=== PATIENT | female | born 2000 | race Caucasian/White ===

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

== ENCOUNTER → 2022-03-01 16:03 | Outpatient (BNVA) | payer OTHER, SELFPAY | PROVIDERS: PCP Nurse Practitioner Family; Visit Provider Registered Nurse Neonatal Intensive Care | DX: Z20.2 Contact with and (suspected) exposure to infections with a predominantly sexual mode of transmission (principal); N39.0 Urinary tract infection, site not specified | CPT/HCPCS: 81000; 87077; 87086; 87184; 87491; 87591; 87661 ==

== ENCOUNTER 2022-05-25 19:34 | Emergency (ER) | payer OTHER, SELFPAY ==
[2022-05-25 19:36] VITALS: PULSE 94; RESP 16; TEMP 36.8; O2SAT 98; BMI 26.5
[2022-05-25 19:59] LABS: Add Urine Microscopic? NO; Charge for UA Resulting for Rev
[2022-05-25 20:01] LABS: Bilirubin Urine Neg (Negative); Blood Urine Neg (Negative); Glucose Urine UA Norm (Normal); Ketones Urine 1+ (Negative); Leukocyte Esterase Urine Negative (Negative); Nitrate Urine Negative (Negative); Protein Urine Neg (Negative); Urine Appearance Clear (CLEAR); Urine Color Light yellow (Yellow); Urobilinogen Urine Norm (Negative); pH Urine 6 (5-7)
[2022-05-25 20:07] LABS: HCG Qualitative Urine. Positive (Negative)
--- NOTE | 2022-05-25 21:11 | W.ED.NAVMDI ---
HPI - Nausea/Vomiting/Diarrhea General: Chief complaint: Nausea/Vomiting/Diarrhea Stated complaint: 7 wks gestation; n/v; lethargy Time Seen by Provider: 05/25/22 20:55 Source: patient Mode of arrival: ambulatory Limitations: no limitations History of Present Illness: See nursing assessment. Patient reports nausea for approximately 1 week. Patient states she has had increased nausea and vomiting for the past 2 days. She states she felt a little dizzy today due to persistent nausea vomiting. She states she has been unable to hold food and fluid down. She did take promethazine earlier today without relief. She states this is her first . She has established care already. She denies any abdominal pain. Denies any fever. Associated nausea: Yes Associated symtoms: Reports dizziness (Mild) and nausea; Denies anxiety, change in vision, chest pain, headache(s) or palpitations Review of Systems Const: Denies: fever(s) or chills Eyes: Denies: change in vision ENMT: Denies: throat pain Card: Denies: chest pain or palpitations Resp: Denies: dyspnea or wheezing GI: Reports: nausea and vomiting; Denies: abdominal pain : Denies: flank pain Musc: Denies: neck pain or back pain Skin/Breast: Denies: rash or pruritus Neuro: Reports: dizziness (Mild); Denies: headache(s) or numbness in extremities Psych: Denies: anxiety Tan/Lymph: Denies: enlarged lymph nodes [facility] ED PFSH: Medical History No pertinent past medical history neghx: htn,dm,thyroid,dvt/pe PCP: Reshma Real Surgical History No pertinent past surgical history Family History Grandmother Breast cancer Maternal--dx age late 50's Family/Other Diabetes Paternal side in general Breast cancer Maternal Great Grandmother--dx age unknown Father Hypertension Hypercholesteremia Denies family history of Colon cancer Ovarian cancer Heart disease Uterine cancer Thyroid disease Stroke Female Reproductive History: Date of last menstrual period: 04/08/22 Supplemental [facility] Information: Approximately 7 weeks . Physical Exam Const: COMMON NORMALS: no acute distress, patient oriented x3, no limitations and well nourished GENERAL APPEARANCE: cooperative HENMT: COMMON NORMALS: normocephalic and atraumatic HEAD & SCALP: normocephalic and atraumatic FACE & SINUS: normal facial exam Eye: COMMON NORMALS: EOMs intact bilaterally Neck/C-Spine: COMMON NORMALS: full ROM, no lymphadenopathy, supple and no meningeal signs GENERAL: Yes normal visual inspection Lymph: LYMPHATIC: no lymphadenopathy noted Chest: COMMONS NORMALS: normal inspection of the chest and normal palpation of entire chest wall CHEST: No Ecchymosis present and No rash Resp: COMMON NORMALS: normal respiratory effort, No retractions and clear to auscultation bilaterally EFFORT & INSPECTION: No respiratory distress AUSCULTATION: clear to auscultation bilaterally Cardio: COMMON NORMALS: regular rate, regular rhythm and Peripheral pulses 2+ throughout JUGULAR VENOUS DISTENTION: no JVD RATE: regular rate RHYTHM: regular rhythm PERIPHERAL PULSES: Peripheral pulses 2+ throughout GI: COMMON NORMALS: Normal to inspection, nondistended, normoactive bowel sounds present and non-tender : COMMON NORMALS: Yes no CVA tenderness BLADDER/KIDNEY EXAM: Yes no CVA tenderness Back/Pelvis: COMMON NORMALS: no CVA tenderness Extremity: COMMON NORMALS: normal to inspection, full ROM and capillary refill normal Neuro: COMMON NORMALS: patient oriented x3, CN's II-XII intact bilaterally, no focal motor deficits and no sensory deficits noted MENINGEAL SIGNS: Yes no meningeal signs Psych: COMMON NORMALS: mental status grossly normal and Normal thought process present THOUGHT PROCESS: Normal thought process present Skin: COMMON NORMALS: no rashes or lesions noted and no wounds GENERAL SKIN EXAM: no rashes or lesions noted Course Vital Signs: Vital signs: Vital Signs Temperature 98.3 F 05/25/22 19:36 Pulse Rate 94 05/25/22 19:36 Respiratory Rate 16 05/25/22 19:36 Pulse Oximetry 98 05/25/22 19:36 Oxygen Delivery Me thod 05/25/22 19:36 MDM - Nausea/Vomiting/Diarrhea Medical Decision Making Hyperemesis gravidarum, mild dehydration 2224: Patient feeling well. She has no nausea. She feels back to baseline. I did discuss that she can take either promethazine or metoclopramide or Zofran for nausea but do not combine the medications. Lab Data 05/25/22 21:17 05/25/22 21:30 Laboratory Results WBC 9.2 10^3/uL (4.5-13.0) 05/25/22 21:17 RBC 4.56 10^6/uL (4.1-5.3) 05/25/22 21:17 Hgb 13.1 g/dL (11.5-15.3) 05/25/22 21:17 Hct 38.7 % (37.0-47.0) 05/25/22 21:17 MCV 84.9 fl (81-99) 05/25/22 21:17 MCH 28.7 pg (28.0-34.0) 05/25/22 21:17 MCHC 33.9 g/dL (30.0-36.0) 05/25/22 21:17 RDW 12.1 % (12.1-15.1) 05/25/22 21:17 Plt Count 283 10^3/cmm (130-400) 05/25/22 21:17 MPV 9.7 fL (7.4-10.4) 05/25/22 21:17 Neut % (Auto) 63.6 % 05/25/22 21:17 Lymph % (Auto) 28.1 % 05/25/22 21:17 Hunt % (Auto) 6.3 % 05/25/22 21:17 Eos % (Auto) 1.4 % 05/25/22 21:17 Baso % (Auto) 0.5 % 05/25/22 21:17 Neut # (Auto) 5.85 10^3/uL (1.8-8.0) 05/25/22 21:17 Lymph # (Auto) 2.6 10^3/uL (1.5-6.5) 05/25/22 21:17 Hunt # (Auto) 0.6 10^3/uL (0.2-0.9) 05/25/22 21:17 Eos # (Auto) 0.1 10^3/uL (0.0-0.8) 05/25/22 21:17 Baso # (Auto) 0.1 10^3/uL (0.0-0.1) 05/25/22 21:17 Nucleated RBC % (auto) 0 % 05/25/22 21:17 Nucleated RBCs # 0.0 /100WBC 05/25/22 21:17 Sodium 136 mmol/L (136-145) 05/25/22 21:30 Potassium 3.5 mmol/L (3.5-5.1) 05/25/22 21:30 Chloride 105 mmol/L (98-107) 05/25/22 21:30 Carbon Dioxide 21 mmol/L (22-29) L 05/25/22 21:30 Anion Gap 13.5 (5-19) 05/25/22 21:30 BUN 5 mg/dL (6-20) L 05/25/22 21:30 Creatinine 0.5 mg/dL (0.5-0.9) 05/25/22 21: GFR Calculation 157.3 mL/min (90-130) H 05/25/22 21:30 Glucose 79 mg/dL (65-115) 05/25/22 21:30 Calculated Osmolality 278 mOsm/kg (285-295) L 05/25/22 21:30 Calcium 8.1 mg/dL (8.5-10.5) L 05/25/22 21:30 Total Bilirubin 0.4 mg/dL (0.15-1.2) 05/25/22 21:30 AST 13 U/L (0-32) 05/25/22 21:30 ALT 12 U/L (0-33) 05/25/22 21:30 Alkaline Phosphatase 50 U/L (35-105) 05/25/22 21:30 Total Protein 6.3 g/dL (6.6-8.7) L 05/25/22 21:30 Albumin 4.2 g/dL (3.5-5.2) 05/25/22 21: Globulin 2.1 g/dL (1.3-4.6) 05/25/22 21:30 HCG, Qual Positive (Negative) H 05/25/22 19:45 Urine Color Light yellow (Yellow) 05/25/22 19:45 Urine Appearance Clear (CLEAR) 05/25/22 19:45 Urine pH 6 (5-7) 05/25/22 19:45 Ur Specific [place] 1.010 (1.005-1.030) 05/25/22 19:45 Urine Protein Neg (Negative) 05/25/22 19:45 Urine Glucose (UA) Norm (Normal) 05/25/22 19:45 Urine Ketones 1+ (Negative) H 05/25/22 19:45 Urine Blood Neg (Negative) 05/25/22 19:45 Urine Nitrate Negative (Negative) 05/25/22 19:45 Urine Bilirubin Neg (Negative) 05/25/22 19:45 Urine Urobilinogen Norm mg/dL (Negative) 05/25/22 19:45 Ur Leukocyte Esterase Negative (Negative) 05/25/22 19:45 Discharge Plan Discharge Patient Disposition: Home Clinical Impression: Hyperemesis gravidarum, Nausea/vomiting in , First trimester , Mild dehydration Condition: Stable Prescriptions: New ondansetron 4 mg tablet,disintegrating 4 mg PO Q6H PRN (Reason: nausea and vomiting) Qty: 15 2RF metoclopramide HCl 10 mg tablet 10 mg PO Q6H PRN (Reason: nausea and vomiting) Qty: 20 2RF No Action levonorgestrel-ethinyl estrad [Levora-28] 0.15-0.03 mg tablet 1 tab PO DAILY Qty: 84 3RF ciprofloxacin HCl [Cipro] 500 mg tablet 500 mg PO BID 5 Days Qty: 10 0RF promethazine 25 mg tablet 25 mg PO Q6H PRN (Reason: nausea and vomiting) Qty: 45 0RF Discharge Orders: Discharge ED (Routine); Ordered 05/25/22 Ordered By: Garland Devries Referrals: Reshma Real FNP [Primary Care Provider] - Discharge Diet: Advance as tolerated Patient Instructions: Hyperemesis Gravidarum (ED), Dehydration (ED), at 7 to 10 Weeks (ED) Activity Restrictions/Additional Instructions: Drink plenty of fluids. May take promethazine or metoclopramide or Zofran as needed for nausea. Take medications as prescribed. Avoid taking medications together. Follow-up with OB doctor as needed. Coding Level of Care Code ED Cook Supervisor for Chg Fwd History Comprehensive Exam Comprehensive Medical Decision Making Moderate Complexity
[2022-05-25 21:20] LABS: Basophils # 0.1 10^3/uL (0.0-0.1); Basophils % 0.5 %; Eosinophils # 0.1 10^3/uL (0.0-0.8); Eosinophils % 1.4 %; Hematocrit 38.7 % (37.0-47.0); Hemoglobin 13.1 g/dL (11.5-15.3); Lymphocytes # 2.6 10^3/uL (1.5-6.5); Lymphocytes % 28.1 %; Mean Corpuscular HGB Conc 33.9 g/dL (30.0-36.0); Mean Corpuscular Hemoglobin 28.7 pg (28.0-34.0); Mean Corpuscular Volume 84.9 fl (81-99); Mean Platelet Volume 9.7 fL (7.4-10.4); Monocytes # 0.6 10^3/uL (0.2-0.9); Monocytes % 6.3 %; Neutrophils # 5.85 10^3/uL (1.8-8.0); Neutrophils % 63.6 %; Nucleated Red Blood Cells % 0 %; Platelet Count 283 10^3/cmm (130-400); Red Blood Count 4.56 10^6/uL (4.1-5.3); Red Cell Distribution Width 12.1 % (12.1-15.1); White Blood Count 9.2 10^3/uL (4.5-13.0)
[2022-05-25] MEDS: sodium chloride 0.9% 1,000 ML 999 ML IV (21:28)
[2022-05-25] MEDS: metoclopramide 5 mg/mL SDV 2 mL 10 MG IVP (21:29)
[2022-05-25 22:03] LABS: Alanine Aminotransferase 12 U/L (0-33); Albumin Level 4.2 g/dL (3.5-5.2); Alkaline Phosphatase 50 U/L (35-105); Anion Gap 13.5 (5-19); Aspartate Amino Transferase 13 U/L (0-32); Blood Urea Nitrogen 5 mg/dL (6-20); Calcium 8.1 mg/dL (8.5-10.5); Carbon Dioxide 21 mmol/L (22-29); Chloride 105 mmol/L (98-107); Globulin 2.1 g/dL (1.3-4.6); Glomerular Filtration Rate 157.3 mL/min (90-130); Glucose 79 mg/dL (65-115); Osmolality Calculated 278 mOsm/kg (285-295); Potassium 3.5 mmol/L (3.5-5.1); Sodium 136 mmol/L (136-145); Total Bilirubin 0.4 mg/dL (0.15-1.2); Total Protein 6.3 g/dL (6.6-8.7)
[2022-05-25 22:42] VITALS: BP 127/83; PULSE 65; RESP 20; O2SAT 99
== END 2022-05-25 22:45 | disposition home or self-care (01) ==
PROVIDERS: Emergency Medicine; Nurse Practitioner Family; Emergency Provider Family Medicine; PCP Nurse Practitioner Family
DX: O21.1 Hyperemesis gravidarum with metabolic disturbance (principal); Z3A.01 Less than 8 weeks gestation of pregnancy
CPT/HCPCS: 80053; 81003; 81025; 85025; 96361; 96374; 96375; 99284; J2765; J7030

== ENCOUNTER 2022-06-08 16:21 | Observation (INO) | payer OTHER, MEDICAID, SELFPAY ==
[2022-06-08 14:30] VITALS: RESP 16
[2022-06-08] MEDS: metoclopramide 5 mg/mL SDV 2 mL 10 MG IVP ×2 (14:56→21:25)
[2022-06-08] MEDS: lactated ringers 1,000 ML 999 ML IV (14:56)
[2022-06-08 14:58] VITALS: BP 109/63; PULSE 88; TEMP 36.7
[2022-06-08 15:00] VITALS: BMI 25.1
[2022-06-08 15:10] LABS: Bilirubin Urine Neg (Negative); Blood Urine Neg (Negative); Glucose Urine UA Norm (Normal); Ketones Urine 2+ (Negative); Leukocyte Esterase Urine Negative (Negative); Nitrate Urine Negative (Negative); Protein Urine Neg (Negative); Urine Appearance Hazy (CLEAR); Urine Color Yellow (Yellow); Urobilinogen Urine 1 mg/dL (Negative); pH Urine 5 (5-7)
[2022-06-08 15:15] LABS: Anion Gap 17.4 (5-19); Blood Urea Nitrogen 5 mg/dL (6-20); Calcium 9.3 mg/dL (8.5-10.5); Carbon Dioxide 21 mmol/L (22-29); Chloride 99 mmol/L (98-107); Glomerular Filtration Rate 157.3 mL/min (90-130); Glucose 96 mg/dL (65-115); Osmolality Calculated 275 mOsm/kg (285-295); Potassium 3.4 mmol/L (3.5-5.1); Sodium 134 mmol/L (136-145)
[2022-06-08 15:32] LABS: Bacteria Urine 1+ /hpf; Mucus Urine 2+ /hpf; RBC Urine 0-4 /hpf (0-2); Squamous Epithelial Cell Urine 0-4 /hpf (0-5); WBC Urine 0-4 /hpf (0-5)
--- NOTE | 2022-06-08 15:42 | US_ITS ---
WS: [id number] EARLY OBSTETRICAL ULTRASOUND (<14 WEEKS). HISTORY: for dating COMPARISON: None available. Single intrauterine gestational sac is identified. Cardiac activity at 171 BPM. [place]-rump length aide sures 1.5 cm which corresponds to a gestation of 7w5d. Normal-appearing yolk sac and amnion demonstra abiola. No subchorionic hemorrhage. No free fluid. Normal size ovaries with no mass. US/US OB <=14 wk fetus w transvag IMPRESSION: 1. Single intrauterine gestation of 7 weeks 5 days with an EDC of 01/20/2023. 2. Normal cardiac activity.
[2022-06-08 16:05] VITALS: BP 124/67; PULSE 90; RESP 17; TEMP 36.7
[2022-06-08] MEDS: sodium chloride 0.9% 1,000 ML 125 ML IV ×2 (16:07→23:50)
[2022-06-08] MEDS: promethazine 25 mg/mL SDV 1 mL IM (18:12)
[2022-06-08 21:18] VITALS: TEMP 37
[2022-06-08 21:19] VITALS: BP 99/52; PULSE 73
[2022-06-09 05:16] VITALS: BP 105/65; PULSE 78; PULSE 83; TEMP 36.6; O2SAT 99
[2022-06-09 05:52] LABS: Anion Gap 12.7 (5-19); Blood Urea Nitrogen 4 mg/dL (6-20); Calcium 8.4 mg/dL (8.5-10.5); Carbon Dioxide 20 mmol/L (22-29); Chloride 106 mmol/L (98-107); Glomerular Filtration Rate 203.5 mL/min (90-130); Glucose 76 mg/dL (65-115); Osmolality Calculated 276 mOsm/kg (285-295); Potassium 3.7 mmol/L (3.5-5.1); Sodium 135 mmol/L (136-145)
[2022-06-09] MEDS: metoclopramide 5 mg/mL SDV 2 mL 10 MG IVP (07:32)
[2022-06-09] MEDS: sodium chloride 0.9% 1,000 ML 125 ML IV (07:33)
[2022-06-09 08:29] VITALS: BP 108/59; PULSE 82
--- NOTE | 2022-06-09 12:27 | P.SS_ITS ---
Short Stay Summary Providers Date of Admit/Discharge: 06/09/22 Attending Provider: Shad Kelly MD Primary Care Provider: CHAMP Maldonado Chief Complaint: Hyperemisis gravidarium HPI History of Present Illness Monisha Giraldo is a 22 year old female Review of Systems Narrative: movement: no Const: Denies: fever(s) or chills Card: Denies: chest pain, palpitations, irregular heart rhythm or syncope Resp: Denies: dyspnea GI: Reports: nausea and vomiting; Denies: abdominal pain : Denies: flank pain, dysuria, urinary frequency or urinary urgency Musc: Denies: back pain or extremity swelling Skin/Breast: Denies: rash, pruritus, breast pain, nipple discharge or breast mass Neuro: Denies: headache(s), difficulty walking, dizziness or restless legs Psych: Denies: anxiety, depression or mood swings Endo: Denies: polyuria, tired all the time, cold intolerance or heat intolerance Tan/Lymph: Denies: easy bruising, easy bleeding, petechiae or purpura All/Imm: Denies: urticaria Home Meds/Allergies Home Medications and Allergies Home Medications Medication Instructions Recorded Confirmed Type metoclopramide HCl 10 mg tablet 10 mg PO Q6H PRN 05/30/22 05/30/22 History (Reglan) prenat.vits,halley,uic-jtyn-fnnge 1 tab PO DAILY 05/30/22 05/30/22 History Allergies Allergy/AdvReac Type Severity Reaction Status Date / Time No Known Allergies Allergy Verified 05/30/22 09:14 PFSH Acute PFSH: Medical History No pertinent past medical history neghx: htn,dm,thyroid,dvt/pe PCP: Tommy Real Surgical History No pertinent past surgical history Family History Grandmother Breast cancer Maternal--dx age late 50's Family/Other Diabetes Paternal side in general Breast cancer Maternal Great Grandmother--dx age unknown Father Hypertension Hypercholesteremia Denies family history of Colon cancer Ovarian cancer Heart disease Uterine cancer Thyroid disease Stroke Female Reproductive History: Date of last menstrual period: 04/08/22 : 1 Vitals/I&O/Wt Last Vital Signs Temp 97.9 F 06/09/22 05:16 Pulse 82 06/09/22 08:29 Resp 17 06/08/22 16:05 BP 108/59 06/09/22 08:29 Pulse Ox 99 06/09/22 05:16 O2 Del Method 06/08/22 16:29 06/08/22 06/09/22 06/09/22 22:59 06:59 14:59 Intake Total 1000 / 1000 964.583 / 1963.583 964.583 / 964.583 Balance 1000 / 1000 964.583 / 1963.583 964.583 / 964.583 Weight last 48 hrs Weight 64.41 kg Physical Exam Const: COMMON NORMALS: no acute distress and well nourished EXAM LIMITATIONS: no altered mental status GENERAL APPEARANCE: cooperative and well hydrated ORIENTATION/CONSCIOUSNESS: Yes awake, Yes oriented to person, Yes oriented to place and Yes oriented to time GI: COMMON NORMALS: Soft to palpation INSPECTION: Yes gravid abdomen PALPATION: Yes Soft to palpation and No Tenderness to palpation present (GI) Neuro: SENSORIUM/ORIENTATION: Yes oriented to person, Yes oriented to place and Yes oriented to time Hospital Course Hospital Course Ms. Giraldo is a 22 year old established patient with LMP of 04/08/2022, JACK 01/13/23, placing her at 8+6 weeks today. Was admitted yesterday due to nausea and vomiting in . She was treated with IV fluids due to dehydration, and Reglan. She have improved and she is tolerating diet. SSS Data Data Completed and Pending: Completed Studies During Hospitalization Category Date Time Status US OB <=14 wk fet us w transvag Rout ine Ultrasound 06/08/22 15:42 Completed Discharge Plan Discharge Patient Disposition: Home Condition: Stable Prescriptions: New [place] 20-20 mg tablet,IR,delayed rel,biphasic 1 tab PO BID Qty: 60 1RF Continued prenat.vits,halley,nso-[id number]-lhjdl Tablet 1 tab PO DAILY metoclopramide HCl [Reglan] 10 mg tablet 10 mg PO Q6H PRN promethazine 25 mg tablet 25 mg PO Q6H PRN (Reason: nausea and vomiting) Qty: 45 0RF promethazine 25 mg suppository 25 mg ND Q6H PRN (Reason: nausea and vomiting) Qty: 12 0RF Discharge Orders: Discharge Order (Routine); Ordered 06/09/22 Ordered By: Shad Kelly Discharge Diet: Advance as tolerated Discharge Activity: Increase activity as tolerated Patient Instructions: Hyperemesis Gravidarum (GEN), Opioid Safety, OB Undelivered Discharge Activity Restrictions/Additional Instructions: Pelvic rest for 6 weeks (no sex, no tampons, no vaginal douches). Return to the emergency room if any fever, increased bleeding, pain or worsening of nausea and vomiting. Attestations Medical Necessity Statement*: In my professional opinion per admitting diagnosis Time Spent in Patient Care*: greater than 30 min Quality Metrics Clinical Quality Measures: [ No reported AMI, CVA or VTE this stay ] Coding Level of Care Code Acute Code for Chg Fwfátima
[2022-06-09 13:01] VITALS: BP 110/58; PULSE 85
[2022-06-09 13:03] VITALS: TEMP 36.6
[2022-06-09 13:59] VITALS: RESP 15; TEMP 36.6
== END 2022-06-09 13:03 | disposition home or self-care (01) ==
LOC: OPOB 18:19 → OBGYN 18:34
PROVIDERS: Admitting Provider Obstetrics & Gynecology; PCP Nurse Practitioner Family; Visit Provider Obstetrics & Gynecology
DX: O21.9 Vomiting of pregnancy, unspecified (principal); Z3A.08 8 weeks gestation of pregnancy; E86.0 Dehydration
CPT/HCPCS: 36415; 76801; 76817; 80048; 81001; 96372; 96374; 96376; 99211; G0378; J2550; J2765; J7030; J7120

== ENCOUNTER 2022-06-20 11:32 | Outpatient (CLI) | payer OTHER, MEDICAID, SELFPAY ==
[2022-06-20 12:11] LABS: Hematocrit 36.2 % (37.0-47.0); Hemoglobin 12.1 g/dL (11.5-15.3); Mean Corpuscular HGB Conc 33.4 g/dL (30.0-36.0); Mean Corpuscular Hemoglobin 28.5 pg (28.0-34.0); Mean Corpuscular Volume 85.4 fl (81-99); Mean Platelet Volume 9.9 fL (7.4-10.4); Platelet Count 259 10^3/cmm (130-400); Red Blood Count 4.24 10^6/uL (4.1-5.3); Red Cell Distribution Width 11.9 % (12.1-15.1); White Blood Count 8.2 10^3/uL (4.5-13.0)
[2022-06-20 12:40] LABS: Rapid Plasma Reagin Syphilis Nonreactive (Nonreactive)
[2022-06-20 12:41] LABS: Rubella IgG 12.7 IU/mL (0.0-10.0)
== END 2022-06-20 11:33 | disposition home or self-care (01) ==
PROVIDERS: PCP Nurse Practitioner Family; Visit Provider Obstetrics & Gynecology
DX: Z34.00 Encounter for supervision of normal first pregnancy, unspecified trimester (principal)
CPT/HCPCS: 36415; 80307; 84315; 85027; 86592; 86762; 86803; 86850; 86900; 87086; 87340; 87806

== ENCOUNTER → 2022-07-07 10:25 | Outpatient (BNVA) | payer OTHER, MEDICAID, SELFPAY | PROVIDERS: PCP Nurse Practitioner Family; Visit Provider Obstetrics & Gynecology | DX: Z34.00 Encounter for supervision of normal first pregnancy, unspecified trimester (principal) | CPT/HCPCS: 84315; 87491; 87591; 87661 ==

== ENCOUNTER → 2022-09-06 09:28 | Outpatient (BNVA) | payer OTHER, MEDICAID, SELFPAY | PROVIDERS: PCP Nurse Practitioner Family; Visit Provider Obstetrics & Gynecology | DX: Z34.92 Encounter for supervision of normal pregnancy, unspecified, second trimester (principal); Z3A.21 21 weeks gestation of pregnancy | CPT/HCPCS: 76805 ==

== ENCOUNTER → 2022-09-11 08:51 | Outpatient (BNVA) | payer OTHER, MEDICAID, SELFPAY | PROVIDERS: PCP Nurse Practitioner Family; Visit Provider Obstetrics & Gynecology | DX: Z34.00 Encounter for supervision of normal first pregnancy, unspecified trimester (principal) | CPT/HCPCS: 81000 ==

== ENCOUNTER → 2022-09-27 08:17 | Outpatient (BNVA) | payer OTHER, MEDICAID, SELFPAY | PROVIDERS: PCP Nurse Practitioner Family; Visit Provider Obstetrics & Gynecology | DX: Z34.00 Encounter for supervision of normal first pregnancy, unspecified trimester (principal) | CPT/HCPCS: 82950; 84315 ==

== ENCOUNTER 2022-10-13 09:28 | Outpatient (CLI) | payer OTHER, MEDICAID, SELFPAY ==
[2022-10-13 09:40] VITALS: BMI 30.9
[2022-10-13 09:45] VITALS: BP 115/73; PULSE 101
[2022-10-13 10:00] VITALS: BP 116/71; PULSE 81
== END 2022-10-13 10:11 | disposition home or self-care (01) ==
LOC: OPOB 09:32 → OBGYN 09:33
PROVIDERS: PCP Nurse Practitioner Family; Visit Provider Obstetrics & Gynecology
DX: O36.8190 Decreased fetal movements, unspecified trimester, not applicable or unspecified (principal); Z3A.00 Weeks of gestation of pregnancy not specified
CPT/HCPCS: 99211

== ENCOUNTER → 2022-10-23 11:10 | Outpatient (BNVA) | payer OTHER, MEDICAID, SELFPAY | PROVIDERS: PCP Nurse Practitioner Family; Visit Provider Obstetrics & Gynecology | DX: Z34.90 Encounter for supervision of normal pregnancy, unspecified, unspecified trimester (principal) | CPT/HCPCS: 84315; 85025 ==

== ENCOUNTER → 2022-11-06 07:37 | Outpatient (BNVA) | payer OTHER, MEDICAID, SELFPAY | PROVIDERS: PCP Nurse Practitioner Family; Visit Provider Obstetrics & Gynecology | DX: Z34.00 Encounter for supervision of normal first pregnancy, unspecified trimester (principal) | CPT/HCPCS: 80053; 82570; 84156; 84315; 84550; 85025 ==

== ENCOUNTER 2022-11-09 07:43 | Outpatient (CLI) | payer OTHER, MEDICAID, SELFPAY ==
[2022-11-09 08:19] LABS: Total Volume, Urine 1500 mL
[2022-11-09 08:31] LABS: Urine Total Protein 7.6 mg/dL (0-150)
== END 2022-11-09 07:44 | disposition home or self-care (01) ==
LOC: LAB 07:49
PROVIDERS: PCP Nurse Practitioner Family; Visit Provider Obstetrics & Gynecology
DX: Z34.00 Encounter for supervision of normal first pregnancy, unspecified trimester (principal)
CPT/HCPCS: 84156

== ENCOUNTER 2022-11-09 13:18 | Outpatient (CLI) | payer OTHER, MEDICAID, SELFPAY ==
--- NOTE | 2022-11-09 13:24 | US_ITS ---
WS: [id number] BIOPHYSICAL PROFILE AMNIOTIC FLUID HISTORY: ELEVATED BLOOD PRESSURES COMPARISON: 09/06/2022 position: Vertex. Cardiac activity: 133 bpm. Cervix: Partially visualized. Obscured due to late gestational age. Placenta: Posterior, no previa or abruption. Placenta grade: 1 Parameters are as follows: Breathin Movement: 2 Tone: 2 Fluid volume: 2 Amniotic Fluid Index: 15.1 cm. US/US OB BPP wo NST [address] IMPRESSION: 1. Biophysical profile score: 8/8. 2. Normal amniotic fluid.
[2022-11-09 13:25] VITALS: BMI 32.8
[2022-11-09 13:35] VITALS: BP 120/83; PULSE 99
[2022-11-09 13:57] VITALS: BP 117/77; PULSE 100
[2022-11-09 14:17] VITALS: BP 123/79; PULSE 100
[2022-11-09 14:27] LABS: Urine Creatinine 47 mg/dL (28-217); Urine Protein Random 6 mg/dL
[2022-11-09 14:34] LABS: UPRO/UCREAT Ratio 0.13 mg/mg CR
[2022-11-09 14:38] VITALS: BP 124/80; PULSE 96
[2022-11-09 14:45] VITALS: BP 124/80; PULSE 96; RESP 16; TEMP 36.6
== END 2022-11-09 14:45 | disposition home or self-care (01) ==
LOC: OPOB 13:24 → OBGYN 13:25
PROVIDERS: PCP Nurse Practitioner Family; Visit Provider Obstetrics & Gynecology
DX: O16.9 Unspecified maternal hypertension, unspecified trimester (principal); R51.9 Headache, unspecified; Z3A.00 Weeks of gestation of pregnancy not specified
CPT/HCPCS: 59025; 76819; 82570; 84156; 99211

== ENCOUNTER → 2022-11-23 09:58 | Outpatient (BNVA) | payer OTHER, MEDICAID, SELFPAY | PROVIDERS: PCP Nurse Practitioner Family; Visit Provider Obstetrics & Gynecology | DX: Z34.93 Encounter for supervision of normal pregnancy, unspecified, third trimester (principal); Z3A.33 33 weeks gestation of pregnancy | CPT/HCPCS: 76816 ==

== ENCOUNTER 2022-11-29 17:30 | Outpatient (CLI) | payer OTHER, MEDICAID, SELFPAY ==
[2022-11-29] VITALS (30 sets, daily range): BP systolic 106–126; BP diastolic 53–70; PULSE 77–101; RESP 16–18; TEMP 36.8; O2SAT 97–99; BMI 32.8
[2022-11-29] MEDS: acetaminophen 325 mg Tablet 650 MG PO (18:23)
== END 2022-11-29 19:37 | disposition home or self-care (01) ==
LOC: OPOB 17:35 → OBGYN 17:36
PROVIDERS: PCP Nurse Practitioner Family; Visit Provider Obstetrics & Gynecology
DX: O26.899 Other specified pregnancy related conditions, unspecified trimester (principal); Z3A.00 Weeks of gestation of pregnancy not specified; R42 Dizziness and giddiness
CPT/HCPCS: 59025; 99211

== ENCOUNTER → 2022-12-05 10:11 | Outpatient (BNVA) | payer MEDICAID, SELFPAY | PROVIDERS: PCP Nurse Practitioner Family; Visit Provider Obstetrics & Gynecology | DX: O16.9 Unspecified maternal hypertension, unspecified trimester (principal) | CPT/HCPCS: 76816; 76819 ==

== ENCOUNTER 2022-12-05 11:47 | Outpatient (CLI) | payer MEDICAID, SELFPAY ==
[2022-12-05 11:59] VITALS: TEMP 35.9
[2022-12-05 12:00] VITALS: BMI 33.5
[2022-12-05 12:06] VITALS: BP 112/64; PULSE 91
[2022-12-05 12:20] VITALS: BP 119/73; PULSE 94
== END 2022-12-05 12:30 | disposition home or self-care (01) ==
LOC: OPOB 11:53 → OBGYN 11:54
PROVIDERS: PCP Nurse Practitioner Family; Visit Provider Obstetrics & Gynecology
DX: O16.9 Unspecified maternal hypertension, unspecified trimester (principal); Z3A.00 Weeks of gestation of pregnancy not specified
CPT/HCPCS: 59025; 81000; 99211

== ENCOUNTER 2022-12-08 18:13 | Outpatient (CLI) | payer MEDICAID, SELFPAY ==
[2022-12-08 18:21] VITALS: BP 125/68; PULSE 93
[2022-12-08 18:32] VITALS: BP 115/66; PULSE 83
[2022-12-08 18:42] VITALS: BP 114/64; PULSE 88
[2022-12-08 18:52] VITALS: BP 117/71; PULSE 87
== END 2022-12-08 19:01 | disposition home or self-care (01) ==
LOC: OPOB 18:13 → OBGYN 18:14
PROVIDERS: PCP Nurse Practitioner Family; Visit Provider Obstetrics & Gynecology
DX: O24.419 Gestational diabetes mellitus in pregnancy, unspecified control (principal); Z3A.00 Weeks of gestation of pregnancy not specified
CPT/HCPCS: 59025

== ENCOUNTER 2022-12-12 18:36 | Outpatient (CLI) | payer MEDICAID, SELFPAY ==
[2022-12-12 18:36] VITALS: BMI 33.8
[2022-12-12 18:45] VITALS: TEMP 37
[2022-12-12 18:48] VITALS: BP 118/74; PULSE 93
[2022-12-12 19:03] VITALS: BP 117/70; PULSE 88
== END 2022-12-12 19:15 | disposition home or self-care (01) ==
LOC: OPOB 18:41 → OBGYN 18:44
PROVIDERS: PCP Nurse Practitioner Family; Visit Provider Obstetrics & Gynecology
DX: O16.9 Unspecified maternal hypertension, unspecified trimester (principal); Z3A.00 Weeks of gestation of pregnancy not specified
CPT/HCPCS: 59025; 99211

== ENCOUNTER → 2022-12-14 08:09 | Outpatient (BNVA) | payer MEDICAID, SELFPAY | PROVIDERS: PCP Nurse Practitioner Family; Visit Provider Obstetrics & Gynecology | DX: Z34.00 Encounter for supervision of normal first pregnancy, unspecified trimester (principal) | CPT/HCPCS: 76819 ==

== ENCOUNTER 2022-12-14 09:25 | Outpatient (CLI) | payer MEDICAID, SELFPAY ==
[2022-12-14 09:29] VITALS: RESP 18
[2022-12-14 09:50] VITALS: BP 121/78; PULSE 93
== END 2022-12-14 09:52 | disposition home or self-care (01) ==
LOC: OPOB 09:26 → OBGYN 09:27
PROVIDERS: PCP Nurse Practitioner Family; Visit Provider Obstetrics & Gynecology
DX: O24.419 Gestational diabetes mellitus in pregnancy, unspecified control (principal); Z3A.00 Weeks of gestation of pregnancy not specified
CPT/HCPCS: 59025; 84315

== ENCOUNTER 2022-12-19 19:16 | Outpatient (CLI) | payer OTHER, MEDICAID, SELFPAY ==
[2022-12-19 19:20] VITALS: BP 138/80; PULSE 108; RESP 16; TEMP 35.8; TEMP 36.6; BMI 34.2
[2022-12-19 19:40] VITALS: BP 138/80; PULSE 108; RESP 16; TEMP 36.6
== END 2022-12-19 19:45 | disposition home or self-care (01) ==
LOC: OPOB 19:16 → OBGYN 19:18
PROVIDERS: PCP Nurse Practitioner Family; Visit Provider Obstetrics & Gynecology
DX: Z36.9 Encounter for antenatal screening, unspecified (principal)
CPT/HCPCS: 59025

== ENCOUNTER → 2022-12-21 07:57 | Outpatient (BNVA) | payer MEDICAID, SELFPAY | PROVIDERS: PCP Nurse Practitioner Family; Visit Provider Obstetrics & Gynecology | DX: Z34.93 Encounter for supervision of normal pregnancy, unspecified, third trimester (principal); Z3A.36 36 weeks gestation of pregnancy | CPT/HCPCS: 76815; 76819 ==

== ENCOUNTER 2022-12-21 10:20 | Outpatient (CLI) | payer MEDICAID, SELFPAY ==
[2022-12-21 10:20] VITALS: BMI 34.0
[2022-12-21 10:31] VITALS: BP 121/74; PULSE 100
[2022-12-21 10:46] VITALS: BP 110/66; PULSE 90
[2022-12-21 11:01] VITALS: BP 113/65; PULSE 91
[2022-12-21 11:22] VITALS: BP 113/65; PULSE 91; RESP 18
[2022-12-26 19:14] VITALS: BP 122/68; PULSE 75
[2022-12-26 19:28] VITALS: BP 119/66; PULSE 78
== END 2022-12-21 11:05 | disposition home or self-care (01) ==
LOC: OPOB 10:22 → OBGYN 10:23
PROVIDERS: PCP Nurse Practitioner Family; Visit Provider Obstetrics & Gynecology
DX: O16.9 Unspecified maternal hypertension, unspecified trimester (principal)
CPT/HCPCS: 59025; 84315; 87081

== ENCOUNTER 2022-12-26 18:42 | Outpatient (CLI) | payer MEDICAID, SELFPAY ==
[2022-12-26 18:42] VITALS: BMI 34.0
[2022-12-26 18:56] VITALS: RESP 16
[2022-12-26 19:33] VITALS: RESP 16
== END 2022-12-26 19:33 | disposition home or self-care (01) ==
LOC: OPOB 18:46 → OBGYN 18:48 → OPOB 19:01 → OBGYN 19:04
PROVIDERS: PCP Nurse Practitioner Family; Visit Provider Obstetrics & Gynecology
DX: Z36.9 Encounter for antenatal screening, unspecified (principal)
CPT/HCPCS: 59025

== ENCOUNTER → 2022-12-28 07:56 | Outpatient (BNVA) | payer OTHER, MEDICAID, SELFPAY | PROVIDERS: PCP Nurse Practitioner Family; Visit Provider Obstetrics & Gynecology | DX: O13.9 Gestational [pregnancy-induced] hypertension without significant proteinuria, unspecified trimester (principal) | CPT/HCPCS: 76819 ==

== ENCOUNTER 2022-12-28 10:24 | Outpatient (CLI) | payer OTHER, MEDICAID, SELFPAY ==
[2022-12-28 10:23] VITALS: BMI 34.2
[2022-12-28 10:32] VITALS: BP 126/82; PULSE 86
[2022-12-28 10:45] VITALS: RESP 17
[2022-12-28 10:47] VITALS: BP 121/79; PULSE 82
[2022-12-28 11:02] VITALS: BP 117/75; PULSE 96
[2022-12-28 11:05] LABS: Actim Prom Negative
[2022-12-28 11:14] VITALS: BP 117/75; PULSE 96
== END 2022-12-28 11:14 | disposition home or self-care (01) ==
LOC: OPOB 10:25 → OBGYN 10:27
PROVIDERS: Absent Provider Obstetrics & Gynecology; PCP Nurse Practitioner Family; Visit Provider Obstetrics & Gynecology
DX: O13.9 Gestational [pregnancy-induced] hypertension without significant proteinuria, unspecified trimester (principal); Z3A.00 Weeks of gestation of pregnancy not specified
CPT/HCPCS: 59025; 84112; 84315; 99211

== ENCOUNTER 2023-01-01 11:44 | Outpatient (CLI) | payer OTHER, MEDICAID, SELFPAY ==
[2023-01-01 11:40] VITALS: BMI 34.2
[2023-01-01 11:50] VITALS: BP 132/80; PULSE 88
[2023-01-01 12:03] VITALS: BP 127/74; PULSE 103
[2023-01-01 12:20] VITALS: BP 127/74; PULSE 103; RESP 16; TEMP 36.3
== END 2023-01-01 12:20 | disposition home or self-care (01) ==
LOC: OPOB 11:45 → OBGYN 11:46
PROVIDERS: PCP Nurse Practitioner Family; Visit Provider Obstetrics & Gynecology
DX: O13.9 Gestational [pregnancy-induced] hypertension without significant proteinuria, unspecified trimester (principal); Z3A.00 Weeks of gestation of pregnancy not specified
CPT/HCPCS: 59025; 99211

== ENCOUNTER 2023-01-02 11:38 | Outpatient (CLI) | payer OTHER, MEDICAID, SELFPAY ==
[2023-01-01 11:50] VITALS: PULSE 88
[2023-01-02 11:40] VITALS: BMI 34.2
[2023-01-02 11:49] VITALS: BP 132/88; PULSE 97
[2023-01-02 11:54] VITALS: RESP 15
[2023-01-02 12:10] VITALS: BP 120/70; PULSE 79
[2023-01-02 15:00] VITALS: BP 124/75; PULSE 120
[2023-01-02 15:21] VITALS: BP 117/65; PULSE 100
== END 2023-01-02 15:30 | disposition home or self-care (01) ==
LOC: OPOB 11:44 → OBGYN 11:45
PROVIDERS: PCP Nurse Practitioner Family; Visit Provider Obstetrics & Gynecology
DX: O16.9 Unspecified maternal hypertension, unspecified trimester (principal); Z3A.00 Weeks of gestation of pregnancy not specified
CPT/HCPCS: 59025; 99211

== ENCOUNTER → 2023-01-04 08:44 | Outpatient (BNVA) | payer OTHER, MEDICAID, SELFPAY | PROVIDERS: PCP Nurse Practitioner Family; Visit Provider Obstetrics & Gynecology | DX: Z34.00 Encounter for supervision of normal first pregnancy, unspecified trimester (principal) | CPT/HCPCS: 76819; 84315 ==

== ENCOUNTER 2023-01-06 08:49 | Inpatient (IN) | payer OTHER, MEDICAID, SELFPAY ==
[2023-01-06] VITALS (30 sets, daily range): BP systolic 112–130; BP diastolic 60–92; PULSE 63–98; RESP 16; TEMP 35.9; O2SAT 92–100; BMI 33.8
[2023-01-06 09:24] LABS: Basophils % 0.4 %; Eosinophils # 0.1 10^3/uL (0.0-0.8); Eosinophils % 0.7 %; Hematocrit 31.6 % (36-47); Lymphocytes # 1.4 10^3/uL (1.5-6.5); Lymphocytes % 12.6 %; Mean Corpuscular HGB Conc 32.9 g/dL (30-55); Mean Corpuscular Hemoglobin 27.9 pg (27-33); Mean Corpuscular Volume 84.7 fl (85-98); Mean Platelet Volume 10.3 fL (7.4-10.4); Monocytes # 0.9 10^3/uL (0.2-0.9); Monocytes % 7.9 %; Neutrophils # 8.51 10^3/uL (1.8-8.0); Neutrophils % 77.9 %; Nucleated Red Blood Cells % 0 %; Platelet Count 229 10^3/cmm (157-399); Red Blood Count 3.73 10^6/uL (3.85-5.65); Red Cell Distribution Width 13.1 % (12.1-15.1); White Blood Count 10.91 10^3/uL (4.5-13.0)
[2023-01-06] MEDS: miSOPROStol 100 mcg tablet 25 MCG VAGINAL ×2 (09:27→13:54)
--- NOTE | 2023-01-06 09:40 | P.HP_ITS ---
Providers/Chief Complaint Admitting Physician: alyssa Primary HOME CARE PROVIDER: Jose Primary Care Provider: CHAMP Maldonado Chief Complaint: IOL HPI HOME CARE PROVIDER History of Present Illness Monisha Munguia is a 22 year old female G1, P0 at 39 weeks gestation with JACK 01/13/2023 by early ultrasound. Patient is admitted for induction of labor due to gestational hypertension. To date patient has required no medication. She complains of several episodes of blurred vision, denies headaches chest pain or shortness of breath. She admits to good movement with no abdominal or pelvic pain. She denies any leakage of fluid or vaginal bleeding. She has been having nonstress test biweekly which has been reassuring. She does blood pressure monitoring at home and has had several high values with a diastolic of 100 and several in the 90s. Today her pelvic exam cervix is closed, soft. I have reviewed with patient use of Cytotec for cervical ripening, and Pitocin for contraction and the possibility of nonreassuring monitoring which may result in the need for section delivery. Patient verbalizes understanding. Review of Systems General: Reports: 10 or more systems reviewed and unremarkable except in HPI and below Medications/Allergies Home Medications Medication Instructions Recorded Confirmed Last Taken Type prenat.vits,halley,gfn-suqd-pmcwa 1 tab PO DAILY 05/30/22 01/04/23 12/14/22 08:00 History ondansetron HCl 4 mg tablet 4 mg PO Q8H 11/06/22 01/04/23 01/02/23 10:35 History acetaminophen 325 mg capsule 325 mg PO QID PRN Mild Pain (Scale 12/14/22 01/04/23 Unknown History (Tylenol) Score 1-4) Allergies Allergy/AdvReac Type Severity Reaction Status Date / Time No Known Allergies Allergy Verified 01/04/23 08:37 PFSH HOME CARE PROVIDER PFSH: Medical History No pertinent past medical history neghx: htn,dm,thyroid,dvt/pe PCP: Tommy Real Surgical History No pertinent past surgical history Family History Grandmother Breast cancer Maternal--dx age late 50's Family/Other Diabetes Paternal side in general Breast cancer Maternal Great Grandmother--dx age unknown Father Hypertension Hypercholesteremia Denies family history of Colon cancer Ovarian cancer Heart disease Uterine cancer Thyroid disease Stroke History History History 1 Term 0 Miscarriages/Ectopic Living Children Care JACK Calculator Estimated Delivery Date Method Current WG Current Estimate 01/13/23 LMP (Certain) 39w 0d Other Estimates 01/20/23 Ultrasound #1 38w 0d Expected Delivery Route/Plan JACK 01/20/2023 BASED ON 7 WEEK ULTRASOUND Specific Issues/Plans * Nausea and vomiting Vitals/I&O/Wt Last Vital Signs Pulse 82 01/06/23 09:33 BP 112/66 01/06/23 09:33 Physical Exam Narrative: 22-year-old female alert and orient x3 no acute distress Const: COMMON NORMALS: no acute distress, healthy appearing and well nourished HENMT: COMMON NORMALS: normocephalic Resp: COMMON NORMALS: normal respiratory effort and clear to auscultation bilaterally Cardio: COMMON NORMALS: regular rate, regular rhythm and No murmurs present (Cardio) GI: COMMON NORMALS: Soft to palpation and non-tender Back/Pelvis: COMMON NORMALS: no CVA tenderness Extremity: COMMON NORMALS: normal to inspection, no clubbing, cyanosis or edema, no calf tenderness and no pedal edema Neuro: COMMON NORMALS: CN's II-XII intact bilaterally and moves all extremities Data 01/06/23 08:50 A&P Assessment and plan (1) Supervision of normal first : Admitted to labor and delivery for cervical ripening/induction of labor (2) Gestational hypertension: Attestations Medical Necessity Statement*: Induction of labor for gestational hypertension at 39 weeks gestation. Coding Level of Care Code Acute Code for Chg Fwd Diagnoses Supervision of normal first Z34.00 Gestational hypertension O13.9
[2023-01-06] MEDS: dextrose 5%-lactated ringers 1,000 ML 125 ML IV (18:32)
[2023-01-06] MEDS: oxytocin 30 UNIT/500 ML BAG IV (18:32)
--- NOTE | 2023-01-06 20:09 | PM.PN ---
Subjective Subjective: 22-year-old female G1, P0 at 39 weeks gestation for induction of labor due to gestational hypertension. Patient has received 2 doses of Cytotec vaginally when cervix was closed. Cervix currently 1 cm 50% -2 vertex presentation. Pitocin was started and currently at 5. EFM?reassuring BP tolerating trial of labor well 121/70. Patient states contractions are getting uncomfortable but she desires no pain medication at this time. Vitals/I&O/Wt Last Vital Signs Pulse 65 01/06/23 20:07 Resp 16 01/06/23 08:39 BP 121/70 01/06/23 20:07 O2 Del Method Room Air 01/06/23 08:00 01/06/23 01/06/23 01/06/23 06:59 14:59 22:59 Intake Total 1.967 / 1.967 Balance 1.967 / 1.967 Weight last 48 hrs Weight 86.636 kg Data 01/06/23 08:50 A&P Assessment and plan (1) Supervision of normal first : (2) Gestational hypertension: Plan P. Continue Pitocin induction per protocol. Pain management at patient's request. Will AROM at 3 to 4 cm. Attestations Medical Necessity Statement*: Induction of labor due to gestational hypertension Coding Level of Care Code Acute Code for Chg Fwd Diagnoses Supervision of normal first Z34.00 Gestational hypertension O13.9
[2023-01-06] MEDS: lactated ringers 1,000 ML 999 ML IV ×2 (22:49→22:50)
--- NOTE | 2023-01-06 23:10 | ANES.PREANE2 ---
Pre-Anesthetic Assessment Height/Weight: Height 1.6 m Weight 86.636 kg Temp Pulse Resp BP Pulse Ox O2 Del Method 96.6 F L 88 16 124/66 99 Room Air 01/06/23 21:43 01/06/23 23:26 01/06/23 08:39 01/06/23 23:26 01/06/23 23:22 01/06/23 19:55 Preop Diagnosis: IUP Familial anesthetic complications: none Was Beta Makenna taken within 24 hours: N/A Was Clonidine taken within 24 hours: N/A Social No alcohol and No tobacco Exam alert and oriented x 3 Airway Submandibular: within normal limits Cervical ROM: within normal limits Mallampati: Class II Dentition: full History/ROS No significant history except as noted Pulmonary None reported CV/HEM Hypertension (gestational) None reported Hepatic None reported GI None reported Metabolic None reported Musc/skel None reported Neuropsych None reported Anesthetic Plan ASA status: 2 Anesthesia: Anesthesia Evaluation, General and Regional (specify below) (epidural) Medications/Allergies Home Medications Medication Instructions Recorded Confirmed Last Taken Type prenat.vits,halley,kse-pwvl-tlefy 1 tab PO DAILY 05/30/22 01/04/23 12/14/22 08:00 History ondansetron HCl 4 mg tablet 4 mg PO Q8H 11/06/22 01/04/23 01/02/23 10:35 History acetaminophen 325 mg capsule 325 mg PO QID PRN Mild Pain (Scale 12/14/22 01/04/23 Unknown History (Tylenol) Score 1-4) Allergies Allergy/AdvReac Type Severity Reaction Status Date / Time No Known Allergies Allergy Verified 01/04/23 08:37 Current Medications Generic Name Dose Route Start Last Admin Trade Name Freq PRN Reason Stop Dose Admin Dextrose/Lactated Ringer's 1,000 mls @ 125 mls/hr 01/06/23 08:45 01/06/23 18:32 Dextrose 5%-Lactated Ringers IV 125 mls/hr .Q8H UYEN Administration Oxytocin 30 unit in 500 mls @ 1 mls/hr 01/06/23 18:00 01/06/23 22:15 Pitocin IV 13 milliunit/min .Q24H UYEN 13 mls/hr Titration Protocol 1 MILLIUNIT/MIN Lactated Ringer's 1,000 mls @ 999 mls/hr 01/06/23 21:23 01/06/23 22:50 Lactated Ringers IV 999 mls/hr .Q1H1M PRN Administration See label comments Misoprostol 25 mcg 01/06/23 08:42 01/06/23 13:54 Misoprostol 100 Mcg Tablet VAGINAL 25 mcg Q4H PRN Administration cervical ripening PFSH Anesthesia Medical History No pertinent past medical history neghx: htn,dm,thyroid,dvt/pe PCP: Tommy Real Surgical History No pertinent past surgical history Family History Grandmother Breast cancer Maternal--dx age late 50's Family/Other Diabetes Paternal side in general Breast cancer Maternal Great Grandmother--dx age unknown Father Hypertension Hypercholesteremia Denies family history of Colon cancer Ovarian cancer Heart disease Uterine cancer Thyroid disease Stroke Female Reproductive History : 1 Data Anesthesia 01/06/23 08:50 Short CBC 01/06/23 Range/Units 08:50 WBC 10.91 (4.5-13.0) 10^3/uL Hgb 10.40 L (12.4-14.8) g/dL Hct 31.6 L (36-47) % MCV 84.7 L (85-98) fl Plt Count 229 (157-399) 10^3/cmm Neut % (Auto) 77.9 % Neut # (Auto) 8.51 H (1.8-8.0) 10^3/uL Cardiac Studies: No Data to Display
--- NOTE | 2023-01-06 23:29 | P.ANES_ITS ---
Anesthesia Procedures Procedure/Date: 01/06/23 Epidural: Time Out Performed: Yes Consents Signed: Procedure Consent Consent: from patient, risks and benefits reviewed and patient agrees to proceed Lumbar Level: L3-L4 Epidural position: sitting Epidural procedure: sterile prep of area, 1% lidocaine to numb the area, 18 g needle, neg for parest hesia, test dose given, 1.5% xylocaine 1:200k epi, placed PCEA, no systemic response, sterile dressing applied, L.U.D. no apparent complications and 0.2% Ropiavacaine @ mls/hr (10) Additional Comments: SHAYLEE at 5.5, taped at 11 at skin. negative blood/ CSF return upon aspiration.
[2023-01-06] MEDS: ROPivacaine syringe 100 MG/50 ML SYRINGE 10 MG EPIDURAL (23:30)
[2023-01-07] VITALS (49 sets, daily range): BP systolic 104–156; BP diastolic 60–95; PULSE 57–112; RESP 15–17; TEMP 36.2–36.9; O2SAT 97–98
[2023-01-07] MEDS: ROPivacaine syringe 100 MG/50 ML SYRINGE 10 MG EPIDURAL (03:06)
[2023-01-07] MEDS: ondansetron 2 mg/ML SDV 2 mL 4 MG IVP (03:39)
[2023-01-07] MEDS: dextrose 5%-lactated ringers 1,000 ML 125 ML IV (04:15)
--- NOTE | 2023-01-07 07:18 | P.PCNOB_ITS ---
Delivery Note: Date of delivery: January 07, 2023 Pre-delivery diagnoses: 22yo female at 39.1 wk IUP with GHTN Post-delivery diagnoses: same Procedure: 1. Cervical Ripening-Cytotec 2. Induction of labor with Pitocin 3. Spontaneous vaginal delivery of a viable male Op report anesthesia: Epidural Delivering Physician: Marlee BAIN Estimated blood loss (mL): 300 Findings: Normal male Delivery: After complete dilatation patient was allowed to labor down. She began to experience vaginal pressure and with serial pushing with contractions the vertex was delivered to +2 presentation. She continued to push the head presented in although a presentation, nuchal cord x1 was easily reduced followed by delivery of the anterior then posterior shoulders. The remainder of the baby's body easily delivered over an intact perineum. With stimulation, a robust cry was noted. The cord was clamped after a delay and baby placed on the mother's chest for bonding. Nursing staff present for assessment drying of the baby and assisting mom. The baby was then taken to the warmer for further evaluation. Cord blood was obtained and handed off. Three-vessel cord was noted and with fundal massage the placenta presented in a Montano presentation with trailing membranes. The uterus was massaged and firmed. The Pitocin IV solution was st arted in a bolus manner. The vaginal vault was explored with no lacerations noted. ?7/9 weight?7 pounds 6 Mother and infant are both in stable and satisfactory condition. Post-Delivery Status: Stable History History History 1 Term 1 0 Miscarriages/Ectopic Living Children 1 Past Pregnancies Del. Date GA/Weeks Outcome Route Wt Inf Gender Labor Lgth Comp. Anesth esia Location 01/07/23 39 live - full term Vaginal 3.345 kg Male A&P Assessment and plan (1) Supervision of normal first : P. Began care (2) Gestational hypertension: P. We will continue to watch blood pressure, and reviewed with patient risk of hypertension in the future. Coding Level of Care Code Acute Code for Chg Fwd Diagnoses Supervision of normal first Z34.00 Gestational hypertension O13.9
--- NOTE | 2023-01-07 09:03 | ANE.PACU2 ---
Inpatient post-anesthesia follow up: Airway intact: Yes Vital signs: Temperature 97.3 F Pulse Rate 72 Respiratory Rate 16 Blood Pressure 111/77 Pulse Oximetry 99 Oxygen Delivery Me thod Room Air Oxygen Flow Rate Fraction of Inspir ed Oxygen Hydration adequate: Yes Nausea and vomiting: No Pain level: 2 Mental status: Baseline
[2023-01-07] MEDS: acetaminophen 325 mg Tablet 650 MG PO (09:54)
[2023-01-07] MEDS: lanolin oint 7 gm 1 APPLIC TOPICAL (09:54)
[2023-01-07] MEDS: ibuprofen 800 mg tablet PO ×2 (14:36→21:41)
[2023-01-07] MEDS: docusate sodium 100 mg Capsule PO (18:56)
[2023-01-07 21:02] LABS: Hematocrit 28.7 % (36-47); Mean Corpuscular HGB Conc 32.8 g/dL (30-55); Mean Corpuscular Volume 85.4 fl (85-98); Mean Platelet Volume 10.2 fL (7.4-10.4); Platelet Count 218 10^3/cmm (157-399); Red Blood Count 3.36 10^6/uL (3.85-5.65); White Blood Count 14.46 10^3/uL (4.5-13.0)
[2023-01-08 05:34] VITALS: BP 116/77; PULSE 66; RESP 16; TEMP 36.9; O2SAT 98
[2023-01-08] MEDS: ibuprofen 800 mg tablet PO (08:56)
[2023-01-08] MEDS: prenatal vitamin Capsule 1 CAP PO (08:56)
--- NOTE | 2023-01-08 09:28 | PM.OBGYDC ---
Discharge Providers [employer] Date of Admission: 01/06/23 08:49 Date of Discharge: 01/08/23 Attending Provider at Admission: Kimberly Amin DO Attending Provider at Discharge: Kimberly Amin DO Primary Care Provider: CHAMP Maldonado Diagnoses at Discharge Discharge Diagnosis (1) Supervision of normal first : Status: Acute (2) Gestational hypertension: Status: Acute Reason for Visit Reason for Visit: IOL Brief History: GHTN Hospital Course Hospital Course 22yo Female delivered by a viable male after IOL with Hx of GHTN. course uneventful. VSS, afebrile. Pt is well. Pt denies JAMESON, blurred vision, CP or SOB. She is tolerating regular diet, ambulating and voiding. Disussion of discharge expectations, and pt verbalizes understanding. Information Peripartum Data: Infant Delivery Method: Vaginal Physical Exam Back/Pelvis: OTHER: Abd- soft, fundus firm below umbilicus Lochia light. Extremity: NARRATIVE EXTREMITY EXAM: no edema Homans neg Urinary Catheter Management: Ford: Cath Placed During This Visit: yes, but has since been removed by the nurse Reason for Continuing Indwelling Catheter: Decision to DC Catheter Urinary Catheter Date of Insertion: 01/07/23 Urinary Catheter Time of Insertion: 00:46 Date Urinary Catheter Removed: 01/07/23 Time Urinary Catheter Discontinued: 06:44 History History History 1 Term 1 0 Miscarriages/Ectopic Living Children 1 Past Pregnancies Del. Date GA/Weeks Outcome Route Wt Inf Gender Labor Lgth Comp. Anesthesia Location 01/07/23 39 live - full term Vaginal 3.345 kg Male Discharge Data Studies Completed and Pending Laboratory Results WBC 14.46 10^3/uL (4.5-13.0) H 01/07/23 20:43 RBC 3.36 10^6/uL (3.85-5.65) L 01/07/23 20:43 Hgb 9.40 g/dL (12.4-14.8) L 01/07/23 20:43 Hct 28.7 % (36-47) L 01/07/23 20:43 MCV 85.4 fl (85-98) 01/07/23 20:43 MCH 28.0 pg (27-33) 01/07/23 20:43 MCHC 32.8 g/dL (30-55) 01/07/23 20:43 RDW 13.0 % (12.1-15.1) 01/07/23 20:43 Plt Count 218 10^3/cmm (157-399) 01/07/23 20:43 MPV 10.2 fL (7.4-10.4) 01/07/23 20:43 Neut % (Auto) 77.9 % 01/06/23 08:50 Lymph % (Auto) 12.6 % 01/06/23 08:50 [place]key % (Auto) 7.9 % 01/06/23 08:50 Eos % (Auto) 0.7 % 01/06/23 08:50 Baso % (Auto) 0.4 % 01/06/23 08:50 Neut # (Auto) 8.51 10^3/uL (1.8-8.0) H 01/06/23 08:50 Lymph # (Auto) 1.4 10^3/uL (1.5-6.5) L 01/06/23 08:50 [place] # (Auto) 0.9 10^3/uL (0.2-0.9) 01/06/23 08:50 Eos # (Auto) 0.1 10^3/uL (0.0-0.8) 01/06/23 08:50 Baso # (Auto) 0.0 10^3/uL (0.0-0.1) 01/06/23 08:50 Nucleated RBC % (auto) 0 % 01/06/23 08:50 Nucleated RBCs # 0.0 /100WBC 01/06/23 08:50 Vitals Last Vital Signs Temp 98.4 F 01/08/23 05:34 Pulse 66 01/08/23 05:34 Resp 16 01/08/23 05:34 BP 116/77 01/08/23 05:34 Pulse Ox 98 01/08/23 05:34 O2 Del Method Room Air 01/08/23 05:34 Discharge Plan Discharge Patient Disposition: Home Prescriptions: Continued prenat.vits,halley,[id number] Tablet 1 tab PO DAILY acetaminophen [Tylenol] 325 mg capsule 325 mg PO QID PRN (Reason: Mild Pain (Scale Score 1-4)) Discontinued ondansetron HCl 4 mg tablet 4 mg PO Q8H Discharge Orders: Discharge Order (Routine); Ordered 01/08/23 Ordered By: Kimberly Amin Discharge Diet: Regular Discharge Activity: Resume usual activity and Limit activity as instructed Patient Instructions: Opioid Safety Activity Restrictions/Additional Instructions: Pelvic rest x 6 wks Assessment: 1. 39wk IUP with GHTN delivered 2. Asymptomatic Anemia- acute blood loss from delivery Plan of Treatment: DC to home F/U 4 wk for visit Discharge Attestations [employer] Time Spent in Discharge Care*: less than 30 min Coding Level of Care Code Acute Code for Chg Fwd Diagnoses Supervision of normal first Z34.00 Gestational hypertension O13.9
[2023-01-08 10:00] VITALS: BP 127/82; PULSE 68; RESP 17; TEMP 36.8; O2SAT 98
[2023-01-08 11:45] VITALS: BP 127/82; PULSE 68; RESP 17; TEMP 36.8; O2SAT 98
== END 2023-01-08 12:10 | disposition home or self-care (01) | DRG 807 ==
LOC: OPOB 01-16 10:37
PROVIDERS: Admitting Provider Obstetrics & Gynecology; PCP Nurse Practitioner Family; Visit Provider Obstetrics & Gynecology
DX: O13.4 Gestational [pregnancy-induced] hypertension without significant proteinuria, complicating childbirth (principal); Z37.0 Single live birth; O69.81X0 Labor and delivery complicated by cord around neck, without compression, not applicable or unspecified; Z3A.39 39 weeks gestation of pregnancy
CPT/HCPCS: 36415; 51702; 59025; 85025; 85027; 96374; 99211; G0103; J2405; J2590; J2795; J7120; J7121

== ENCOUNTER 2023-10-11 16:41 | Emergency (ER) | payer OTHER, MEDICAID, SELFPAY ==
--- NOTE | 2023-10-11 16:43 | ECG_ITS ---
[facility] Test Date: 2023-10-11 Pat Name: Monisha Munguia Department: Room: Gender: Female Supervisor [employer]: : 2000 Requested By: Ernst Hayes Order Number: [id number] Kel MD: Joaquin Low M.D. Measurements Intervals [place] Rate: 99 P: 65 LA: 146 QRS: 107 QRSD: 79 T: 30 QT: 341 QTc: 438 Interpretive Statements SINUS RHYTHM RIGHT AXIS DEVIATION [QRS AXIS > 100] No previous ECG available for comparison Electronically Signed On 10-12-2023 12:34:43 CDT by Joaquin Low M.D. [id number]
--- NOTE | 2023-10-11 16:43 | XRR_ITS ---
PROCEDURE INFORMATION: Exam: XR Chest Exam date and time: 10/11/2023 5:11 PM Age: 23 years old Clinical indication: Shortness of breath and other: Pain; Additional info: Cp TECHNIQUE: Imaging protocol: Radiologic exam of the chest. Views: 1 view. COMPARISON: MR cervical spin wo con* [id number] 11/11/2018 12:00 AM FINDINGS: Lungs: There is no consolidation. Pleural spaces: There is no pleural effusion or pneumothorax. Heart/Mediastinum: Cardiomediastinal contours are unremarkable. Bones/joints: Bones are unremarkable. XR/XR chest 1V portable [id number] IMPRESSION: No acute findings.
[2023-10-11 16:47] VITALS: BP 109/69; PULSE 104; RESP 16; TEMP 36.4; O2SAT 100
[2023-10-11 18:02] LABS: Basophils # 0.1 10^3/uL (0.0-0.1); Basophils % 0.4 %; Eosinophils # 0.2 10^3/uL (0.0-0.8); Eosinophils % 1.6 %; Lymphocytes # 0.7 10^3/uL (0.8-4.8); Lymphocytes % 5.5 %; Mean Corpuscular HGB Conc 33.3 g/dL (30-55); Mean Corpuscular Hemoglobin 28.2 pg (27-33); Mean Corpuscular Volume 84.7 fl (85-98); Monocytes # 0.7 10^3/uL (0.2-0.9); Monocytes % 5.9 %; Neutrophils # 10.46 10^3/uL (1.8-7.7); Neutrophils % 86.4 %; Nucleated Red Blood Cells % 0 %; Platelet Count 286 10^3/cmm (157-399); Red Blood Count 4.96 10^6/uL (3.85-5.65); Red Cell Distribution Width 12.6 % (12.1-15.1); White Blood Count 12.12 10^3/uL (3.29-11.43)
--- NOTE | 2023-10-11 18:36 | ED_ITS ---
HPI - Chest Pain 2 General: Chief Complaint: Chest Pain Stated Complaint: chest pains Time Seen by Provider: 10/11/23 18:28 History of Present Illness: Healthy 23-year-old female who presents to the emergency room with abdominal pain, chest pressure, nausea vomiting and diarrhea, that started about 11:00 today. She has not taken any medications. She has not kept anything down all day she says. Pain in her abdomen is bilaterally and goes into her back. She said the first thing that started with this was the chest pressure and that was the main thing that brought her to the emergency room. No fevers. No altered mental status. Review of Systems 2 Narrative: Constitutional symptoms: Negative except as documented in HPI. Skin symptoms: Negative except as documented in HPI. Eye symptoms: Negative except as documented in HPI. ENMT symptoms: Negative except as documented in HPI. Respiratory symptoms: Negative except as documented in HPI. Cardiovascular symptoms: Negative except as documented in HPI. Gastrointestinal symptoms: Negative except as documented in HPI. Genitourinary symptoms: Negative except as documented in HPI. Musculoskeletal symptoms: Negative except as documented in HPI. Neurologic symptoms: Negative except as documented in HPI. Psychiatric symptoms: Negative except as documented in HPI. Endocrine symptoms: Negative except as documented in HPI. PFSH ED 2 PFSH: Medical History Gestational hypertension No pertinent past medical history neghx: htn,dm,thyroid,dvt/pe PCP: Reshma Real Surgical History No pertinent past surgical history Family History Grandmother Breast cancer Maternal--dx age late 50's Family/Other Diabetes Paternal side in general Breast cancer Maternal Great Grandmother--dx age unknown Father Hypertension Hypercholesteremia Denies family history of Colon cancer Ovarian cancer Heart disease Uterine cancer Thyroid disease Stroke Physical Exam 2 Narrative: EXAM NARRATIVE: General: Alert, no acute distress. Skin: Warm, dry. Head: Normocephalic, atraumatic. Neck: Supple, trachea midline. Eye: Extraocular movements are intact. Ears, nose, mouth and throat: Tacky oral mucosa Cardiovascular: Regular, Normal peripheral perfusion. Respiratory: Lungs are clear to auscultation, respirations are non-labored, breath sounds are equal, Symmetrical chest wall expansion. Gastrointestinal: Soft, Nontender, Non distended, Normal bowel sounds. Musculoskeletal: Normal ROM, no deformity. Neurological: Alert and oriented, No focal neurological deficit observed. Psychiatric: Cooperative, appropriate mood & affect. Course 2 Vital Signs: Vital signs: Vital Signs Temperature 97.5 F L 10/11/23 16:47 Pulse Rate 81 10/11/23 20:32 Respiratory Rate 18 10/11/23 20:32 Blood Pressure 103/57 10/11/23 20:32 Pulse Oximetry 97 10/11/23 20:32 Oxygen Delivery Me thod Room Air 10/11/23 16:47 MDM - Chest Pain Medical Decision Making Medical decision making: Differential diagnosis for this patient with nausea and vomiting including but not limited to and based on the above HPI, review of systems and physical exam: Urinary tract infection. Appendicitis. Cholecystis. colitis. small bowel obstruction. crohn's flare. pancreatitis. gastritis. peptic ulcer. cyclic vomiting. Viral illness. Influenza. COVID. Workup - labwork and imaging ordered to evaluate, rule in and rule out above pathologies. EKG: Time 1642 rate 99. Normal sinus rhythm, No ST-T changes, no ectopy, normal TX & QRS intervals, This was reviewed and interpreted by myself the ER physician at 1645 Chest x-ray: No acute process. No infiltrate. No pneumothorax. No cardiomegaly. This was reviewed and interpreted by myself the ER physician. Lab Review: Laboratory results were reviewed and interpreted by myself the emergency room physician. Lab work is fairly unremarkable. Mild leukocytosis with a white count of 12. Hemoglobin is 14. BUN and creatinine are 11 and 0.7 which would indicate she is not terribly dehydrated. Glucose is 90. Urinalysis is clear. Urine is a bit concentrated which would lean towards dehydration. I reviewed the patient's medical record. Reexamination: Patient remained stable. She has had no vomiting while she is here. She says her pain is slightly improved but she still does have some pain in her belly and her back. No increased work of breathing. No altered mental status. She does state that she would like to feel better when she goes home. I explained that I might not be able to get her symptom-free but we are improved and she is hydrated at this point. Assessment and plan: Viral gastroenteritis Dehydration Noncardiac chest pain ? 2 doses IV Zofran and 1 L normal saline bolus. 30 mg IV Toradol. - Discharged home - Discussed plan with patient. Answered any questions. - Evaluation and treatment of this problem were appropriate in the emergency setting. Lab Data 10/11/23 17:54 10/11/23 17:54 Radiology Impressions Chest X-Ray 10/11/23 16:43 IMPRESSION: No acute findings. Laboratory Results WBC 12.12 10^3/uL (3.29-11.43) H 10/11/23 17:54 RBC 4.96 10^6/uL (3.85-5.65) 10/11/23 17:54 Hgb 14.00 g/dL (11.27-16.99) 10/11/23 17:54 Hct 42.0 % (36-47) 10/11/23 17:54 MCV 84.7 fl (85-98) L 10/11/23 17:54 MCH 28.2 pg (27-33) 10/11/23 17:54 MCHC 33.3 g/dL (30-55) 10/11/23 17:54 RDW 12.6 % (12.1-15.1) 10/11/23 17:54 Plt Count 286 10^3/cmm (157-399) 10/11/23 17:54 MPV 10.0 fL (7.4-10.4) 10/11/23 17:54 Neut % (Auto) 86.4 % 10/11/23 17:54 Lymph % (Auto) 5.5 % 10/11/23 17:54 [place] % (Auto) 5.9 % 10/11/23 17:54 Eos % (Auto) 1.6 % 10/11/23 17:54 Baso % (Auto) 0.4 % 10/11/23 17:54 Neut # (Auto) 10.46 10^3/uL (1.8-7.7) H 10/11/23 17:54 Lymph # (Auto) 0.7 10^3/uL (0.8-4.8) L 10/11/23 17:54 [place] # (Auto) 0.7 10^3/uL (0.2-0.9) 10/11/23 17:54 Eos # (Auto) 0.2 10^3/uL (0.0-0.8) 10/11/23 17:54 Baso # (Auto) 0.1 10^3/uL (0.0-0.1) 10/11/23 17:54 Nucleated RBC % (auto) 0 % 10/11/23 17:54 Nucleated RBCs # 0.0 /100WBC 10/11/23 17:54 Sodium 141 mmol/L (136-145) 10/11/23 17:54 Potassium 3.8 mmol/L (3.5-5.1) 10/11/23 17:54 Chloride 104 mmol/L (98-107) 10/11/23 17:54 Carbon Dioxide 25 mmol/L (22-29) 10/11/23 17:54 Anion Gap 15.8 (5-19) 10/11/23 17:54 BUN 11 mg/dL (6-20) 10/11/23 17:54 Creatinine 0.7 mg/dL (0.5-0.9) 10/11/23 17:54 GFR Calculation 105.6 mL/min (90-130) 10/11/23 17:54 Glucose 90 mg/dL (65-115) 10/11/23 17:54 Calculated Osmolality 291 mOsm/kg (285-295) 10/11/23 17:54 Calcium 8.8 mg/dL (8.5-10.5) 10/11/23 17:54 Total Bilirubin 0.4 mg/dL (0.15-1.2) 10/11/23 17:54 AST 14 U/L (0-32) 10/11/23 17:54 ALT 10 U/L (0-33) 10/11/23 17:54 Alkaline Phosphatase 108 U/L (35-105) H 10/11/23 17:54 Total Protein 8.7 g/dL (6.6-8.7) 10/11/23 17:54 Albumin 5.1 g/dL (3.5-5.2) 10/11/23 17:54 Globulin 3.6 g/dL (1.3-4.6) 10/11/23 17:54 Lipase 24 U/L (13-60) 10/11/23 17:54 HCG, Qual Negative (Negative) 10/11/23 17:54 Urine Color Yellow (Yellow) 10/11/23 19:51 Urine Appearance Slightly cloudy (CLEAR) 10/11/23 19:51 Urine pH 5 (5-7) 10/11/23 19:51 Ur Specific [place] 1.020 (1.005-1.030) 10/11/23 19:51 Urine Protein Neg (Negative) 10/11/23 19:51 Urine Glucose (UA) Norm (Normal) 10/11/23 19:51 Urine Ketones 1+ (Negative) H 10/11/23 19:51 Urine Blood Neg (Negative) 10/11/23 19:51 Urine Nitrate Negative (Negative) 10/11/23 19:51 Urine Bilirubin Neg (Negative) 10/11/23 19:51 Urine Urobilinogen Norm mg/dL (Negative) 10/11/23 19:51 Ur Leukocyte Esterase Negative (Negative) 10/11/23 19:51 Urine RBC 0-4 /hpf (0-2) H 10/11/23 19:51 Urine WBC 0-4 /hpf (0-5) H 10/11/23 19:51 Ur Squamous Epith Cells 15-25 /hpf (0-5) H 10/11/23 19:51 Amorphous Sediment Not Reportable 10/11/23 19:51 Urine Bacteria Trace /hpf (NONE) 10/11/23 19:51 Urine Mucus 2+ /hpf 10/11/23 19:51 All radiology interpretation(s) finalized by discharge Discharge Plan Discharge Patient Disposition: Home Clinical Impression: Viral gastroenteritis, Non-cardiac chest pain Condition: Stable Prescriptions: New ondansetron 8 mg tablet,disintegrating 8 mg PO .q6 PRN (Reason: nausea and vomiting) Qty: 14 0RF diclofenac sodium 50 mg tablet,delayed release (DR/EC) 50 mg PO Q12H Qty: 20 0RF No Action acetaminophen [Tylenol] 325 mg capsule 325 mg PO QID PRN (Reason: Mild Pain (Scale Score 1-4)) fluticasone propionate [Flonase Allergy Relief] 50 mcg/actuation spray,suspension 2 spray intranasal DAILY Qty: 16 0RF Rx Instructions: administer into each nostril Discharge Orders: Discharge ED (Routine); Ordered 10/11/23 Ordered By: Leeanna Elliott Referrals: Reshma Real FNP [Primary Care Provider] - 4-7 days Discharge Diet: Advance as tolerated Discharge Activity: Resume usual activity Patient Instructions: Gastroenteritis (ED), Acute Nausea and Vomiting (ED), Noncardiac Chest Pain (ED) Activity Restrictions/Additional Instructions: Thank you for choosing [facility] for your healthcare needs today. Please realize this is an emergency room and that we are providing you with a medical screening exam and this may not be complete and all inclusive of all the testing and or work up that you may need to determine your ailment or severity of your illness. You have been screened and evaluated and felt safe for discharge. Health conditions do change or evolve sometimes and as such it is important that you follow up with your Primary Doctor to be re checked, 3-5 days is a general good time frame for follow up. You are always welcome to return to the ED for re assessment if your symptoms are worsening or you have new concerns Coding Level of Care Code ED Underwriting Intern for Ebony Juarez
[2023-10-11 18:49] LABS: HCG, Serum Qual Negative (Negative)
[2023-10-11] MEDS: ondansetron 2 mg/ML SDV 2 mL 8 MG IVP ×2 (18:50→21:05)
[2023-10-11] MEDS: sodium chloride 0.9% 1,000 ML 999 ML IV (18:50)
[2023-10-11 18:56] LABS: Alanine Aminotransferase 10 U/L (0-33); Albumin Level 5.1 g/dL (3.5-5.2); Alkaline Phosphatase 108 U/L (35-105); Anion Gap 15.8 (5-19); Aspartate Amino Transferase 14 U/L (0-32); Blood Urea Nitrogen 11 mg/dL (6-20); Calcium 8.8 mg/dL (8.5-10.5); Carbon Dioxide 25 mmol/L (22-29); Chloride 104 mmol/L (98-107); Creatinine Clr Calc Pharmacy 112.2564; Globulin 3.6 g/dL (1.3-4.6); Glomerular Filtration Rate 105.6 mL/min (90-130); Glucose 90 mg/dL (65-115); Lipase 24 U/L (13-60); Osmolality Calculated 291 mOsm/kg (285-295); Potassium 3.8 mmol/L (3.5-5.1); Sodium 141 mmol/L (136-145); Total Bilirubin 0.4 mg/dL (0.15-1.2); Total Protein 8.7 g/dL (6.6-8.7)
[2023-10-11 19:00] VITALS: BP 104/61; PULSE 104; RESP 16; O2SAT 99
[2023-10-11 19:30] VITALS: BP 102/65; PULSE 103; RESP 16; O2SAT 100
[2023-10-11] MEDS: ketorolac 30 mg/mL INJ IVP (19:58)
[2023-10-11 20:09] VITALS: BP 102/59; PULSE 85; RESP 16; O2SAT 98
[2023-10-11 20:17] LABS: Glucose Urine UA Norm (Normal); Protein Urine Neg (Negative); Urine Appearance Slightly Cloudy (CLEAR); Urine Color Yellow (Yellow); pH Urine 5 (5-7)
[2023-10-11 20:18] LABS: Add Urine Microscopic? YES; Bilirubin Urine Neg (Negative); Blood Urine Neg (Negative); Ketones Urine 1+ (Negative); Leukocyte Esterase Urine Negative (Negative); Nitrate Urine Negative (Negative); Urobilinogen Urine Norm (Negative)
[2023-10-11 20:20] LABS: Add Urine Culture? No; Bacteria Urine TRACE /hpf; Mucus Urine 2+ /hpf; RBC Urine 0-4 /hpf (0-2); Squamous Epithelial Cell Urine 15-25 /hpf (0-5); WBC Urine 0-4 /hpf (0-5)
[2023-10-11 20:32] VITALS: BP 103/57; PULSE 81; RESP 18; O2SAT 97
== END 2023-10-11 21:08 | disposition home or self-care (01) ==
PROVIDERS: Nurse Practitioner Family; Emergency Provider Emergency Medicine; PCP Nurse Practitioner Family
DX: R07.89 Other chest pain (principal); A08.4 Viral intestinal infection, unspecified
CPT/HCPCS: 36415; 71045; 80053; 81001; 83690; 84703; 85025; 93005; 96361; 96374; 96375; 99285; J1885; J2405; J7030

== ENCOUNTER → 2024-09-04 16:18 | Outpatient (BNVA) | payer OTHER, SELFPAY | PROVIDERS: PCP Nurse Practitioner Family; Visit Provider Nurse Practitioner Women's Health | DX: Z00.00 Encounter for general adult medical examination without abnormal findings (principal); Z11.3 Encounter for screening for infections with a predominantly sexual mode of transmission; N92.6 Irregular menstruation, unspecified | CPT/HCPCS: 83036; 84146; 84403; 84439; 84443; 84702; 86592; 86803; 87340; 87491; 87591; 87661; 87806; 88175 ==

== ENCOUNTER 2024-09-13 17:49 | Emergency (ER) | payer OTHER, MEDICAID, SELFPAY ==
[2024-09-13 18:01] VITALS: BP 125/79; PULSE 89; RESP 16; TEMP 37.1; O2SAT 100; BMI 23.9
--- NOTE | 2024-09-13 18:16 | ECG_ITS ---
[facility] Test Date: 2024-09-13 Pat Name: Monisha Munguia Department: Room: Gender: Female [employer]: : 2000 Requested By: Sam Adamson Order Number: [id number] Kel MD: Bertrand Valentino M.D. Measurements Intervals [place] Rate: 101 P: 62 ND: 132 QRS: 81 QRSD: 90 T: 46 QT: 354 QTc: 460 Interpretive Statements ..PEDIATRIC ECG INTERPRETATION SINUS RHYTHM POSSIBLE LEFT ATRIAL ENLARGEMENT [> 1mm x 0.07mV NEG P AREA IN V1] MINIMAL ANTERIOR T-WAVE CHANGES [T < -0.01mV IN 2 OF V1-3] Compared to ECG 10/11/2023 16:42:00 Right-axis deviation no longer present Electronically Signed On 09-17-2024 10:32:01 CDT by Bertrand Valentino M.D. [id number]
--- NOTE | 2024-09-13 18:45 | W.ED.CHESTPA ---
HPI - Chest Pain General: Chief Complaint: Chest Pain Stated Complaint: tingling, numbness, chest tighness, dizzy Time Seen by Provider: 09/13/24 18:10 History of Present Illness: 24-year-old female presents because she had what she felt like with some chest tightness, felt little dizzy. She reports she had tingling in her bilateral upper and lower extremities. Patient works at the [employer] here when this happened she denies any increased stress or anxiety. Patient does report that she has been having a lot of issues recently with some abnormal physical happenings and is scheduled to see a surveillance supervisor and then concerned about possible autoimmune or MS. Associated symptoms: Deny abdominal pain, dyspnea, fever(s), nausea, palpitations or vomiting Related Data Home Medications ?Medication ?Instructions ?Recorded ?Confirmed diclofenac sodium 50 mg 75 mg PO BID 09/04/24 tablet,delayed release Allergies Allergy/AdvReac Type Severity Reaction Status Date / Time No Known Allergies Allergy Verified 09/04/24 14:37 Review of Systems Const: Denies: fever(s) or chills Card: Reports: other (Chest tightness); Denies: palpitations, irregular heart rhythm or edema Resp: Denies: dyspnea or productive cough GI: Denies: abdominal pain, nausea or vomiting Neuro: Reports: numbness in extremities (All 4 extremity), dizziness and other (Tingling all 4 extremities); Denies: headache(s) Psych: Denies: anxiety or depression [facility] ED PFSH: Medical History (Updated 09/13/24 @ 19:59 by Sam Adamson DO) Irregular menses Gestational hypertension No pertinent past medical history neghx: htn,dm,thyroid,dvt/pe PCP: Dr. Mcdonnell Surgical History No pertinent past surgical history Family History Grandmother Breast cancer Maternal--dx age late 50's Family/Other Diabetes Paternal side in general Breast cancer Maternal Great Grandmother--dx age unknown Father Hypertension Hypercholesteremia Denies family history of Colon cancer Ovarian cancer Heart disease Uterine cancer Thyroid disease Stroke Social History (Reviewed 09/04/24 @ 15:09 by Sailaja Benton APN, [place] Smoking and tobacco/nicotine status: never used tobacco/nicotine Physical Exam Const: COMMON NORMALS: no acute distress, average body habitus, patient oriented x3 and alert HENMT: COMMON NORMALS: normocephalic, atraumatic and hearing grossly normal bilaterally HEAD & SCALP: normocephalic and atraumatic Resp: COMMON NORMALS: normal respiratory effort, No retractions, No use of accessory muscles and clear to auscultation bilaterally AUSCULTATION: clear to auscultation bilaterally Cardio: COMMON NORMALS: regular rate, regular rhythm and Peripheral pulses 2+ throughout RATE: regular rate RHYTHM: regular rhythm PERIPHERAL PULSES: Peripheral pulses 2+ throughout GI: COMMON NORMALS: Soft to palpation and non-tender PALPATION: Yes Soft to palpation Neuro: COMMON NORMALS: patient oriented x3, CN's II-XII intact bilaterally, moves all extremities, no focal motor deficits and gait normal SENSORIUM/ORIENTATION: Yes alert Psych: COMMON NORMALS: mental status grossly normal, cooperative and normal affect Skin: COMMON NORMALS: no rashes or lesions noted and turgor normal GENERAL SKIN EXAM: no rashes or lesions noted and turgor normal Course Vital Signs: Vital signs: Vital Signs Temperature 98.8 F 09/13/24 18:01 Pulse Rate 89 09/13/24 18:01 Respiratory Rate 16 09/13/24 18:01 Blood Pressure 125/79 09/13/24 18:01 Pulse Oximetry 100 09/13/24 18:01 Oxygen Delivery Me thod Room Air 09/13/24 18:01 MDM - Chest Pain Medical Decision Making Patient's diagnostic studies were ordered reviewed and interpreted by me. Patient has no acute findings on her labs with a negative EKG. Patient has been having abnormal symptoms for some time and is following up with the surveillance supervisor as they are unable to figure out the cause. Patient is stable and will be discharged home. I encouraged her to keep her appointment and return the ER as needed. Lab Data 09/13/24 18:40 09/13/24 18:40 Laboratory Results WBC 7.59 10^3/uL (3.29-11.43) 09/13/24 18:40 RBC 4.28 10^6/uL (3.85-5.65) 09/13/24 18:40 Hgb 12.40 g/dL (11.27-16.99) 09/13/24 18:40 Hct 36.9 % (36-47) 09/13/24 18:40 MCV 86.2 fl (85-98) 09/13/24 18:40 MCH 29.0 pg (27-33) 09/13/24 18:40 MCHC 33.6 g/dL (30-55) 09/13/24 18:40 RDW 12.2 % (12.1-15.1) 09/13/24 18:40 Plt Count 304 10^3/cmm (157-399) 09/13/24 18:40 MPV 9.8 fL (7.4-10.4) 09/13/24 18:40 Neut % (Auto) 65.9 % 09/13/24 18:40 Lymph % (Auto) 26.6 % 09/13/24 18:40 [place] % (Auto) 5.3 % 09/13/24 18:40 Eos % (Auto) 1.4 % 09/13/24 18:40 Baso % (Auto) 0.5 % 09/13/24 18:40 Neut # (Auto) 5.00 10^3/uL (1.8-7.7) 09/13/24 18:40 Lymph # (Auto) 2.0 10^3/uL (0.8-4.8) 09/13/24 18:40 Harding # (Auto) 0.4 10^3/uL (0.2-0.9) 09/13/24 18:40 Eos # (Auto) 0.1 10^3/uL (0.0-0.8) 09/13/24 18:40 Baso # (Auto) 0.0 10^3/uL (0.0-0.1) 09/13/24 18:40 Nucleated RBC % (auto) 0 % 09/13/24 18:40 Nucleated RBCs # 0.0 /100WBC 09/13/24 18:40 ESR < 1 mm/hr (0-15) 09/13/24 18:40 Sodium 139 mmol/L (136-145) 09/13/24 18:40 Potassium 3.8 mmol/L (3.5-5.1) 09/13/24 18:40 Chloride 102 mmol/L (98-107) 09/13/24 18:40 Carbon Dioxide 22 mmol/L (22-29) 09/13/24 18:40 Anion Gap 18.8 (5-19) 09/13/24 18:40 BUN 10 mg/dL (6-20) 09/13/24 18:40 Creatinine 0.6 mg/dL (0.5-0.9) 09/13/24 18:40 GFR Calculation 125.0 mL/min (90-130) 09/13/24 18:40 Glucose 85 mg/dL (65-115) 09/13/24 18:40 Calculated Osmolality 286 mOsm/kg (285-295) 09/13/24 18:40 Calcium 9.2 mg/dL (8.5-10.5) 09/13/24 18:40 Total Bilirubin 0.4 mg/dL (0.15-1.2) 09/13/24 18:40 AST 17 U/L (0-32) 09/13/24 18:40 ALT 13 U/L (0-33) 09/13/24 18:40 Alkaline Phosphatase 76 U/L (35-105) 09/13/24 18:40 Troponin T Baseline < 6 ng/L (0-10) 09/13/24 18:40 C-Reactive Protein 3.0 mg/L (0.0-4.9) 09/13/24 18:40 Total Protein 7.4 g/dL (6.6-8.7) 09/13/24 18:40 Albumin 4.8 g/dL (3.5-5.2) 09/13/24 18:40 Globulin 2.6 g/dL (1.3-4.6) 09/13/24 18:40 No radiology studies performed this visit Discharge Plan Discharge Patient Disposition: Home Clinical Impression: Paresthesia Condition: Stable Prescriptions: No Action diclofenac sodium 50 mg tablet,delayed release (DR/EC) 75 mg PO BID Discharge Orders: Discharge ED (Routine); Ordered 09/13/24 Ordered By: Sam Adamson Referrals: Dominic Mcdonnell MD [Primary Care Provider, [facility]] Discharge Diet: Usual diet Discharge Activity: Resume usual activity Patient Instructions: Meralgia Paresthetica (ED), Paresthesia (ED), Opioid Safety, Pain Management Activity Restrictions/Additional Instructions: Please keep your appointment with your surveillance supervisor for further evaluation. Return to the ER with any concerns. Print Language: Syriac Coding Level of Care Code ED Rn Registry for Ebony Juarez
[2024-09-13 18:50] LABS: Basophils % 0.5 %; Eosinophils # 0.1 10^3/uL (0.0-0.8); Eosinophils % 1.4 %; Hematocrit 36.9 % (36-47); Lymphocytes % 26.6 %; Mean Corpuscular HGB Conc 33.6 g/dL (30-55); Mean Corpuscular Volume 86.2 fl (85-98); Mean Platelet Volume 9.8 fL (7.4-10.4); Monocytes # 0.4 10^3/uL (0.2-0.9); Monocytes % 5.3 %; Neutrophils % 65.9 %; Nucleated Red Blood Cells % 0 %; Platelet Count 304 10^3/cmm (157-399); Red Blood Count 4.28 10^6/uL (3.85-5.65); Red Cell Distribution Width 12.2 % (12.1-15.1); White Blood Count 7.59 10^3/uL (3.29-11.43)
[2024-09-13 18:52] LABS: Erythrocyte Sedimentation Rate < 1 mm/hr (0-15)
[2024-09-13 19:02] LABS: Alanine Aminotransferase 13 U/L (0-33); Albumin Level 4.8 g/dL (3.5-5.2); Alkaline Phosphatase 76 U/L (35-105); Anion Gap 18.8 (5-19); Aspartate Amino Transferase 17 U/L (0-32); Blood Urea Nitrogen 10 mg/dL (6-20); Calcium 9.2 mg/dL (8.5-10.5); Carbon Dioxide 22 mmol/L (22-29); Chloride 102 mmol/L (98-107); Creatinine Clr Calc Pharmacy 129.8653; Globulin 2.6 g/dL (1.3-4.6); Glucose 85 mg/dL (65-115); Osmolality Calculated 286 mOsm/kg (285-295); Potassium 3.8 mmol/L (3.5-5.1); Sodium 139 mmol/L (136-145); Total Bilirubin 0.4 mg/dL (0.15-1.2); Total Protein 7.4 g/dL (6.6-8.7)
[2024-09-13 19:03] LABS: Troponin(5th) Baseline < 6 ng/L (0-10)
[2024-09-13 20:16] VITALS: BP 112/80; PULSE 77; O2SAT 99
== END 2024-09-13 20:17 | disposition home or self-care (01) ==
PROVIDERS: Emergency Provider Student in an Organized Health Care Education/Training Program; PCP Family Medicine
DX: R20.2 Paresthesia of skin (principal)
CPT/HCPCS: 80053; 84484; 85025; 85651; 86140; 93005; 99284

== ENCOUNTER → 2024-10-14 13:52 | Outpatient (BNVA) | payer OTHER, MEDICAID, SELFPAY | PROVIDERS: PCP Family Medicine; Visit Provider Nurse Practitioner Women's Health | DX: Z72.53 High risk bisexual behavior (principal); Z20.2 Contact with and (suspected) exposure to infections with a predominantly sexual mode of transmission | CPT/HCPCS: 86695; 86696 ==

== ENCOUNTER 2024-10-21 07:59 | Outpatient (CLI) | payer OTHER, MEDICAID, SELFPAY ==
--- NOTE | 2024-10-21 08:18 | NMR_ITS ---
PROCEDURE INFORMATION: Exam: NM Bone and/or Joint, Limited Exam date and time: 10/21/2024 10:01 AM Age: 24 years old Clinical indication: Bone pain; Foot and hand and hip and shoulder; Bilateral; Joint pain in hands, feet, shoulders, hips and neck. ; Additional info: Polyarthralgia TECHNIQUE: Imaging protocol: Nuclear bone scan was obtained. Views: Frontal and posterior Total images: 2 Radiopharmaceutical: 26.1 mCi Tc-99m HDP (Oxidronate), IV. Time of imaging post radiopharmaceutical administration: Approximately three hours COMPARISON: No relevant prior studies available. FINDINGS: Skeleton: Moderate focal uptake along the left superior orbital rim. Uptake through the remainder of the skeletal system is unremarkable. Residual activity in the urinary bladder could obscure lesions in the pubic symphysis/ superior pubic rami, and potentially in the lower sacrum and coccyx. Soft tissues: Soft tissues demonstrate bladder activity in addition to bilateral renal activity. NM/NM bone scan whole body* [id number] IMPRESSION: Single focus of moderate uptake along the left superior orbital rim is nonspecific, and could be correlated with radiographs or noncontrast CT if indicated. Bone scan is otherwise unremarkable.
== END 2024-10-21 08:00 | disposition home or self-care (01) ==
PROVIDERS: PCP Family Medicine; Visit Provider Student in an Organized Health Care Education/Training Program
DX: M25.50 Pain in unspecified joint (principal); R93.89 Abnormal findings on diagnostic imaging of other specified body structures
CPT/HCPCS: 78306; A9561

== ENCOUNTER → 2025-02-19 07:43 | Outpatient (BNVA) | payer OTHER, MEDICAID, SELFPAY | PROVIDERS: PCP Family Medicine; Visit Provider Nurse Practitioner Women's Health | DX: N92.6 Irregular menstruation, unspecified (principal) | CPT/HCPCS: 81025 ==

== ENCOUNTER 2025-02-24 07:29 | Outpatient (CLI) | payer OTHER, MEDICAID, SELFPAY ==
--- NOTE | 2025-02-24 07:30 | US_ITS ---
WS: [id number] EARLY OBSTETRICAL ULTRASOUND (<14 WEEKS). HISTORY: N91.2 - Amenorrhea, unspecified COMPARISON: None available. Single intrauterine gestational sac is identified. Cardiac activity at 170 BPM. [place]-rump length measures 2.2 cm which corresponds to a gestation of 8w6d. Normal-appearing yolk sac and amnion demonstrated. No subchorionic hemorrhage. No free fluid. LEFT ovary 2.9 x 2.4 x 1.8 cm. Normal vascularity. RIGHT ovary is not identified. US/US OB <=14 wk fetus w transvag IMPRESSION: 1. Single intrauterine gestation of 8w6d with an EDC of 09/30/2025. 2. Normal cardiac activity.
== END 2025-02-24 07:30 | disposition home or self-care (01) ==
LOC: RAD 07:31
PROVIDERS: PCP Family Medicine; Visit Provider Obstetrics & Gynecology
DX: N92.1 Excessive and frequent menstruation with irregular cycle (principal)
CPT/HCPCS: 76801; 76817

== ENCOUNTER → 2025-03-05 08:16 | Outpatient (BNVA) | payer OTHER, MEDICAID, SELFPAY | PROVIDERS: PCP Family Medicine; Visit Provider Nurse Practitioner Women's Health | DX: Z34.90 Encounter for supervision of normal pregnancy, unspecified, unspecified trimester (principal) | CPT/HCPCS: 80307; 84315; 85025; 86592; 86762; 86803; 86850; 86900; 87086; 87340; 87806 ==

== ENCOUNTER 2025-03-20 07:35 | Outpatient (CLI) | payer OTHER, SELFPAY ==
--- NOTE | 2025-03-20 07:42 | MR_ITS ---
WS: [id number] MRI BRAIN WITHOUT CONTRAST HISTORY: VISION CHANGES COMPARISON: None available. TECHNIQUE: Diffusion imaging, multiplanar T1, T2 and FLAIR imaging obtained. Additional sagittal T2 FLAIR images through the brain. No evidence for acute infarct or hemorrhage. West-white matter differentiation is normal. No T2 or FLAIR signal abnormality is noted within the brain. Normal pericallosal signal. The upper brainstem is normal also. No T2 signal abnormalities in the posterior fossa. Normal hippocampal formations. No remote or acute infarcts are volume loss. Ventricles and extra-axial spaces are normal. No inferior displacement of cerebellar tonsils. The sella turcica and pituitary gland are unremarkable. Dural venous sinuses and [place] of [place] demonstrate no abnormality on this unenhanced studies. Paranasal sinuses: Clear. Mastoid air cells: Normal. Calvarium and scalp: Intact. MR/MR head wo con* [id number] IMPRESSION: 1. Normal MRI brain without contrast. 2. No signal abnormalities in the pericallosal white matter or in the posterio r fossa or upper cervical cord. 3. No prior infarcts. Normal hippocampal formations.
== END 2025-03-20 07:36 | disposition home or self-care (01) ==
LOC: RAD 07:37
PROVIDERS: PCP Family Medicine; Visit Provider Family Medicine
DX: H53.9 Unspecified visual disturbance (principal)
CPT/HCPCS: 70551

== ENCOUNTER → 2025-03-23 10:34 | Outpatient (BNVA) | payer OTHER, MEDICAID, SELFPAY | PROVIDERS: PCP Family Medicine; Visit Provider Obstetrics & Gynecology | DX: O09.899 Supervision of other high risk pregnancies, unspecified trimester (principal) | CPT/HCPCS: 84315 ==

== ENCOUNTER → 2025-03-27 10:07 | Outpatient (BNVA) | payer OTHER, MEDICAID, SELFPAY | PROVIDERS: PCP Family Medicine; Visit Provider Nurse Practitioner Women's Health | DX: O09.899 Supervision of other high risk pregnancies, unspecified trimester (principal) | CPT/HCPCS: 84315 ==

== ENCOUNTER → 2025-04-14 14:20 | Outpatient (BNVA) | payer OTHER, MEDICAID, SELFPAY | PROVIDERS: PCP Family Medicine; Visit Provider Nurse Practitioner Women's Health | DX: O09.899 Supervision of other high risk pregnancies, unspecified trimester (principal) | CPT/HCPCS: 82105; 84315; 87491; 87591; 87661 ==